=== PATIENT | male | born 1970 | race American Indian/Alaskan Native ===

== ENCOUNTER 2018-04-10 18:34 | Emergency (ER) | payer MEDICAID, OTHER ==
[2018-04-10 18:34] VITALS: BMI 37.8
--- NOTE | 2018-04-10 18:40 | C.PDOC ---
History Of Present Illness 47 year old male presents to the ED with his fiance for evaluation of left testicular pain and swelling which began around 1 week ago. Patient states symptoms have been worsening since onset, prompting this visit. Patient states he is able to walk, but has pain when sitting down and touching the area. Patient denies fever, chills, night sweats, vomiting, constipation, weight loss, dark/bloody stool, trauma/injury or prior history of similar symptoms. Patient has history of umbilical hernia for which he underwent surgery last year. <Roberto Norris - Last Filed: 04/10/18 23:36> History Per: Patient History/Exam Limitations: no limitations Onset/Duration Of Symptoms: Days (one week ) Current Symptoms Are (Timing): Still Present Quality Of Discomfort: "Pain" Associated Symptoms: denies: Fever, Chills, Nausea, Vomiting, Urinary Symptoms Additional History Per: Patient <Roberto Norris - Last Filed: 04/10/18 23:36> <Sagrario Truong - Last Filed: 04/11/18 00:28> Time Seen by Provider: 04/10/18 18:39 Chief Complaint (Nursing): Male Genitourinary Past Medical History Reviewed: Historical Data, Nursing Documentation, Vital Signs - Medical History PMH: COPD Denies: Chronic Kidney Disease Surgical History: No Surg Hx Family History: States: Unknown Family Hx <Roberto Norris - Last Filed: 04/10/18 23:36> Vital Signs: Last Vital Signs Temp 98.7 F 04/10/18 18:42 Pulse 102 H 04/10/18 18:42 Resp 18 04/10/18 18:42 BP 151/99 H 04/10/18 18:42 Pulse Ox 97 04/10/18 23:37 <Sagrario Truong - Last Filed: 04/11/18 00:28> Review Of Systems Constitutional: Negative for: Fever, Chills, Sweats Gastrointestinal: Negative for: Nausea, Vomiting, Abdominal Pain, Diarrhea, Hematochezia, Hematemesis Genitourinary: Positive for: Other (left testicular pain and swelling ) <Roberto Norris - Last Filed: 04/10/18 23:36> Physical Exam - Physical Exam Appears: Non-toxic, No Acute Distress Skin: Normal Color, Warm, Dry Head: Atraumatic, Normacephalic Eye(s): bilateral: Normal Inspection Male Genital: Testicular Tenderness (left ), Testicular Swelling (left), No Other (discoloration or rash ) Extremity: Normal ROM Neurological/Psych: Oriented x3, Normal Speech, Normal Cognition <Roberto Norris - Last Filed: 04/10/18 23:36> ED Course And Treatment - Laboratory Results Result Diagrams: 04/10/18 20:53 04/10/18 20:53 O2 Sat by Pulse Oximetry: 97 (on RA) Pulse Ox Interpretation: Normal - CT Scan/US testicular ultrasound Other Rad Studies (CT/US): Read By Radiologist, Radiology Report Reviewed CT/US Interpretation: EXAM: US Scrotum. CLINICAL HISTORY: Lt test swelling. TECHNIQUE: Real-time ultrasound of the scrotum with color Doppler and image documentation. COMPARISON: None provided. FINDINGS: RIGHT TESTICLE: Normal in size and echogenicity, no abnormal mass. Normal Doppler flow. Incidental small calcification. LEFT TESTICLE: Normal in size and echogenicity, no abnormal mass. Increased vascularity left testicle. EPIDIDYMIDES: Within normal limits in size and vascularity. SCROTUM: Bilateral complex hydroceles left greater than right in size. There is some left scrotal wall thickening. IMPRESSION: No testicular mass. Mild increased vascularity left testicle. Complex hydroceles bilaterally worse left side. Incidental calcification right testicle. Clinical correlation advised. <Roberto Norris - Last Filed: 04/10/18 23:36> - Laboratory Results Result Diagrams: 04/10/18 20:53 04/10/18 20:53 Pulse Ox Interpretation: Normal Reevaluation Time: 00:26 Reassessment Condition: Improved <Sagrario Truong - Last Filed: 04/11/18 00:28> Medical Decision Making Medical Decision Making: Impression: 47 year old male with left testicular pain and swelling Plan: * testicular ultrasound * reassess and disposition Progress: testicular ultrasound ordered and reviewed. 2051 CT ordered, UA pending labs pending pt in NAD, agreeable to plan 1135 UA unremarkable No contributory sex hx, no hx of stds per pt, sex w/ fiancee only. signed out to Dr. Truong pending CT. pt in NAD <Roberto Norris - Last Filed: 04/10/18 23:36> Disposition <Roberto Norris - Last Filed: 04/10/18 23:36> Counseled Patient/Family Regarding: Studies Performed, Diagnosis, Need For Followup - Disposition Disposition Time: 00:00 <Sagrario Truong - Last Filed: 04/11/18 00:28> - Disposition Referrals: Faisal Martinez Jr., MD [Staff Provider] - Disposition: HOME/ ROUTINE Condition: FAIR Additional Instructions: Please follow up with the urologist and return if symptoms recur Instructions: Hydrocele/Varicocele (DC) Forms: [employer] (Thai) - Clinical Impression Clinical Impression: Left varicocele, Hydrocele in adult - Scribe Statement The provider has reviewed the documentation as recorded by the Scribe Provider Attestation: All medical record entries made by the Scribe were at my direction and personally dictated by me. I have reviewed the chart and agree that the record accurately reflects my personal performance of the history, physical exam, medical decision making, and the department course for this patient. I have also personally directed, reviewed, and agree with the discharge instructions and disposition. <Roberto Norris - Last Filed: 04/10/18 23:36>
[2018-04-10 18:44] VITALS: TEMP 98.7; O2SAT 97
[2018-04-10 20:56] LABS: BASO # 0.1 K/uL (0.0-0.2); BASO % 0.6 % (0.0-2.0); EOS # 0.3 K/uL (0.0-0.7); EOS % 2.9 % (0.0-4.0); HEMOGLOBIN 14.4 g/dL (12.0-18.0); LYMPH # 2.8 K/uL (1.0-4.3); LYMPH % 25.5 % (20.0-40.0); MEAN CELL VOLUME 85.5 fL (80.0-94.0); MEAN CORPUSCULAR HGB CONC 33.8 g/dL (33.0-37.0); MEAN PLATELET VOLUME 6.8 fL (7.2-11.7); MONO # 0.7 K/uL (0.0-0.8); MONO % 6.6 % (0.0-10.0); NEUT % 64.4 % (50.0-75.0); RBC 4.97 Mil/uL (4.40-5.90); RED CELL DISTRIBUTION WIDTH 14.2 % (11.5-14.5)
[2018-04-10] MEDS ORDERED: Iohexol 240 (50 ml) ONE (20:56)
[2018-04-10 21:13] LABS: ALB/GLOB RATIO 1.5 (1.0-2.1); ALBUMIN 4.4 g/dL (3.5-5.0); ALT/SGPT 31 U/L (21-72); AST/SGOT 27 U/L (17-59); BLOOD UREA NITROGEN 13 mg/dL (9-20); CALCIUM 9.1 mg/dl (8.6-10.4); GFR NON-AFRICAN AMERICAN > 60
[2018-04-10 21:21] LABS: SQUAMOUS EPITHIAL < 1 /hpf (0-5); URINE BILIRUBIN NEGATIVE (NEGATIVE); URINE BLOOD NEGATIVE (NEGATIVE); URINE CLARITY Clear (Clear); URINE COLOR Yellow (YELLOW); URINE GLUCOSE (UA) NORMAL (Normal); URINE LEUKOCYTE ESTERASE NEG Leu/uL (Negative); URINE PROTEIN NEGATIVE (NEGATIVE); URINE UROBILINOGEN NORMAL mg/dL (0.2-1.0)
[2018-04-11 00:40] VITALS: BP 148/78; PULSE 82; RESP 20
--- NOTE | 2018-04-11 10:14 | CT ---
Date of service: 04/10/2018 PROCEDURE: CT Abdomen and Pelvis with contrast HISTORY: L testicle pain COMPARISON: None available. TECHNIQUE: CT scan of the abdomen and pelvis was performed after administration of intravenous contrast. Oral contrast was not administered. Coronal and sagittal reformatted images were obtained. Contrast dose: 100 mL Visipaque 320 Radiation dose: Total exam DLP = 1196.43 mGy-cm. This CT exam was performed using one or more of the following dose reduction techniques: Automated exposure control, adjustment of the mA and/or kV according to patient size, and/or use of iterative reconstruction technique. FINDINGS: LOWER THORAX: The visualized lungs are clear. LIVER: Normal in size, fatty liver with homogeneous enhancement. No gross lesion or ductal dilatation. GALLBLADDER AND BILE DUCTS: Well distended. No calcified gallstones, wall thickening or pericholecystic fluid. PANCREAS: Normal in size with homogeneous enhancement. No gross lesion or ductal dilatation. SPLEEN: Normal in size and appearance. ADRENALS: No discrete nodule. KIDNEYS AND URETERS: Normal in size with homogeneous enhancement. No hydronephrosis. No solid mass. VASCULATURE: No aortic aneurysm. BOWEL: Evaluation of the bowel is limited in the absence of oral contrast. The small bowel loops are normal in caliber. The colon is grossly normal in appearance. No bowel wall thickening or obstruction. APPENDIX: Normal appendix. PERITONEUM: No free fluid. No free air. LYMPH NODES: No enlarged lymph nodes. BLADDER: Well distended and normal in appearance. REPRODUCTIVE: The uterus is normal in size. BONES: No acute fracture. Within normal limits for the patient's age. OTHER FINDINGS: Small right and large left fat containing inguinal hernias. Moderate left varicocele IMPRESSION: No acute abdominal or pelvic abnormality. Moderate left varicocele. Large left fat containing inguinal hernia. A preliminary report was provided by [employer].
--- NOTE | 2018-04-11 11:19 | US ---
Date of service: 04/10/2018 HISTORY: L testicular swelling TECHNIQUE: Realtime sonography through the scrotum with color and doppler flow. COMPARISON: None Available. FINDINGS: RIGHT TESTICLE: Measures 4.7 x 2.7 x 2.9 cm. Normal echotexture and flow. There is a small nonspecific calcification. RIGHT EPIDIDYMIS: Epididymal head measures 1.3 x 0.9 x 1.2 cm. Grossly unremarkable appearance with normal flow. LEFT TESTICLE: Measures 5.0 x 2.6 x 2.7 cm. Normal echotexture and with diffuse increased vascular flow. LEFT EPIDIDYMIS: Epididymal head measures 1.3 x 0.7 x 1.1 cm. Grossly unremarkable appearance with normal flow. HYDROCELE: There are bilateral complicated septated hydroceles, left larger than right. VARICOCELE: None. OTHER FINDINGS: There is mild left scrotal wall edema. IMPRESSION: 1. No evidence for testicular mass or torsion. 2. Moderate complicated septated hydroceles, larger on the left. 3. Mild increased vascularity in the left testicle and left scrotal wall edema which may represent testicular hyperemia and scrotal wall edema/cellulitis in the appropriate clinical setting. Clinical follow-up is advised. A preliminary report was provided by [employer].
== END 2018-04-11 00:39 | disposition home or self-care (01) ==
LOC: C.ER 18:34
DX: I86.1 Scrotal varices (principal); N43.3 Hydrocele, unspecified